=== PATIENT | female | born 1970 | race African-American/Black ===

== ENCOUNTER 2019-02-07 15:03 | Emergency (ER) | payer OTHER ==
[~2019-02-07] VITALS: Ht 162.6 cm; Wt 65.8 kg
[2019-02-07] MEDS ORDERED: NABUMETONE 750750 M1 PO (16:41)
[2019-02-07] MEDS ORDERED: TRAMADOL 50 MG50 MG PO (16:41)
[2019-02-07 17:05] VITALS: BP 141/87
== END 2019-02-07 17:06 | disposition home or self-care (01) ==
LOC: M.ERS 15:03
DX: M25.562 Pain in left knee (principal); Z90.49 Acquired absence of other specified parts of digestive tract